=== PATIENT | male | born 1995 | race Caucasian/White ===

== ENCOUNTER 2024-01-08 16:35 | Emergency (ER) | payer OTHER ==
[~2024-01-08] VITALS: Ht 193 cm; Wt 141.1 kg
[2024-01-08 17:13] VITALS: O2SAT 96
[2024-01-08 17:41] LABS: BASOPHILS % 0.5 % (0.0-2.0); EOSINOPHILS % 0.4 % (0.0-5.0); HEMATOCRIT. 45.7 % (42.0-52.0); HEMOGLOBIN. 15.6 g/dL (14.0-18.0); LYMPHOCYTES % 23.5 % (20.0-50.0); MEAN CORPUSCULAR HEMOGLOBIN 29.2 pg (28.0-32.0); MEAN CORPUSCULAR HGB CONC 34.1 g/dL (31.0-37.0); MEAN CORPUSCULAR VOLUME 85.7 fL (80.0-94.0); MEAN PLATELET VOLUME 7.3 fl (7.4-10.4); MONOCYTES % 4.5 % (2.0-8.0); NEUTROPHILS % 71.1 % (40.0-76.0); PLATELET 290 x1000/uL (130-400); RED BLOOD CELL COUNT 5.33 mill/uL (4.7-6.1); WHITE BLOOD COUNT 6.5 x1000/uL (4.5-11.0)
[2024-01-08 18:39] LABS: CHLORIDE 104 mEq/L (98-107); SODIUM 136 mEq/L (136-145)
[2024-01-08 18:40] LABS: CALCIUM 9.9 mg/dL (8.7-10.4); CARBON DIOXIDE 25 mEq/L (21-32)
[2024-01-08 18:45] LABS: CREATININE 0.9 mg/dL (0.6-1.3); GLUCOSE 105 mg/dL (70-105); UREA NITROGEN BLOOD 9 mg/dL (9-23)
[2024-01-08 19:13] LABS: CLARITY URINE CLEAR (CLEAR); COLOR URINE YELLOW (YELLOW); GLUCOSE URINE NEGATIVE (NEGATIVE); KETONES URINE NEGATIVE (NEGATIVE); LEUKOCYTE ESTERASE URINE NEGATIVE (NEGATIVE); NITRITE URINE NEGATIVE (NEGATIVE); OCCULT BLOOD URINE NEGATIVE (NEGATIVE); PH URINE 6.5 (4.5-8.0); PROTEIN URINE NEGATIVE (NEGATIVE); SPECIFIC GRAVITY URINE 1.027 (1.005-1.030)
[2024-01-08 19:23] VITALS: BP 149/93; PULSE 84; RESP 15; TEMP 98.4
== END 2024-01-08 19:36 | disposition home or self-care (01) ==
LOC: ER 16:35
DX: R55 Syncope and collapse (principal); I10 Essential (primary) hypertension
CPT/HCPCS: 80048; 81003; 85025; 36415; 93005; 99284; Z7610

== ENCOUNTER 2024-01-09 18:54 | Inpatient (IN) | payer OTHER ==
[~2024-01-09] VITALS: Ht 193 cm; Wt 143.0 kg
[2024-01-09 19:55] LABS: BASOPHILS % 0.7 % (0.0-2.0); EOSINOPHILS % 1.6 % (0.0-5.0); HEMATOCRIT. 46.3 % (42.0-52.0); HEMOGLOBIN. 16.3 g/dL (14.0-18.0); LYMPHOCYTES % 33.7 % (20.0-50.0); MEAN CORPUSCULAR HEMOGLOBIN 29.7 pg (28.0-32.0); MEAN CORPUSCULAR HGB CONC 35.1 g/dL (31.0-37.0); MEAN CORPUSCULAR VOLUME 84.6 fL (80.0-94.0); MEAN PLATELET VOLUME 7.2 fl (7.4-10.4); MONOCYTES % 7.8 % (2.0-8.0); NEUTROPHILS % 56.2 % (40.0-76.0); PLATELET 293 x1000/uL (130-400); RED BLOOD CELL COUNT 5.47 mill/uL (4.7-6.1); RED CELL DISTRIBUTION WIDTH 13.6 % (11.6-14.6); WHITE BLOOD COUNT 5.9 x1000/uL (4.5-11.0)
[2024-01-09 20:02] LABS: CHLORIDE 104 mEq/L (98-107); POTASSIUM 4.1 mEq/L (3.5-5.1); SODIUM 137 mEq/L (136-145)
[2024-01-09 20:03] LABS: CALCIUM 10.3 mg/dL (8.7-10.4); CARBON DIOXIDE 27 mEq/L (21-32)
[2024-01-09 20:08] LABS: CREATININE 0.9 mg/dL (0.6-1.3); GLUCOSE 79 mg/dL (70-105); UREA NITROGEN BLOOD 11 mg/dL (9-23)
[2024-01-09 20:10] LABS: ALANINE AMINOTRANSFERASE 91 IU/L (10-49); ALBUMIN 5.4 g/dL (3.2-4.8); ASPARTATE AMINOTRANSFERASE 50 IU/L (<34); BILIRUBIN TOTAL 3.2 mg/dL (0.1-1.0); PROTEIN TOTAL 8.4 g/dL (6.0-8.3)
[2024-01-09 20:10] LABS: CLARITY URINE CLEAR (CLEAR); COLOR URINE DARK YELLOW (YELLOW); GLUCOSE URINE NEGATIVE (NEGATIVE); KETONES URINE TRACE (NEGATIVE); LEUKOCYTE ESTERASE URINE NEGATIVE (NEGATIVE); NITRITE URINE NEGATIVE (NEGATIVE); OCCULT BLOOD URINE NEGATIVE (NEGATIVE); PH URINE 6.5 (4.5-8.0); PROTEIN URINE NEGATIVE (NEGATIVE); SPECIFIC GRAVITY URINE 1.022 (1.005-1.030)
[2024-01-09] MEDS ORDERED: ACETAMINOPHEN 325MG TABLET PO PRN ×2 (23:45)
[2024-01-09] MEDS ORDERED: DOCUSATE SODIUM 100MG CAPSULE PO PRN (23:45)
[2024-01-09] MEDS ORDERED: GUAIFENESIN 200MG/10ML SUGAR FREE UDC PO PRN (23:45)
[2024-01-09] MEDS ORDERED: HYDROCODONE/ACETAMINOPHEN 5/325MG TABLET PO PRN (23:45)
[2024-01-09] MEDS ORDERED: IPRATROPIUM/ALBUTEROL 0.5-3(2.5)MG/3ML NEB HHN PRN (23:45)
[2024-01-09] MEDS ORDERED: MAGNESIUM/ALUMINUM HYDROXIDE/SIMETHICONE 30ML UDC PO PRN (23:45)
[2024-01-10 00:57] LABS: CHLORIDE 102 mEq/L (98-107); SODIUM 136 mEq/L (136-145)
[2024-01-10 00:58] LABS: CARBON DIOXIDE 27 mEq/L (21-32)
[2024-01-10 00:59] LABS: CALCIUM 9.5 mg/dL (8.7-10.4)
[2024-01-10 01:03] LABS: CREATININE 0.9 mg/dL (0.6-1.3); GLUCOSE 96 mg/dL (70-105)
[2024-01-10 01:04] LABS: UREA NITROGEN BLOOD 10 mg/dL (9-23)
[2024-01-10 01:05] LABS: ALANINE AMINOTRANSFERASE 77 IU/L (10-49); ALBUMIN 4.5 g/dL (3.2-4.8); ASPARTATE AMINOTRANSFERASE 45 IU/L (<34)
[2024-01-10 01:06] LABS: BILIRUBIN TOTAL 2.6 mg/dL (0.1-1.0); PHOSPHORUS 4.2 mg/dL (2.5-4.9); PROTEIN TOTAL 7.3 g/dL (6.0-8.3)
[2024-01-10] MEDS: CLONIDINE 0.1MG TABLET PO PRN (03:55)
[2024-01-10] MEDS: ONDANSETRON HCL 4MG/2ML INJ IV PRN (03:58)
[2024-01-10] MEDS: MECLIZINE 12.5MG TABLET PO PRN (04:35)
[2024-01-10 07:53] VITALS: BP 169/98; PULSE 77; RESP 18; TEMP 97.5
[2024-01-10 07:55] LABS: BASOPHILS % 0.6 % (0.0-2.0); EOSINOPHILS % 1.1 % (0.0-5.0); HEMATOCRIT. 43.8 % (42.0-52.0); HEMOGLOBIN. 15.1 g/dL (14.0-18.0); LYMPHOCYTES % 28.1 % (20.0-50.0); MEAN CORPUSCULAR HEMOGLOBIN 29.3 pg (28.0-32.0); MEAN CORPUSCULAR HGB CONC 34.5 g/dL (31.0-37.0); MEAN CORPUSCULAR VOLUME 84.9 fL (80.0-94.0); MEAN PLATELET VOLUME 7.2 fl (7.4-10.4); MONOCYTES % 6.5 % (2.0-8.0); NEUTROPHILS % 63.7 % (40.0-76.0); PLATELET 255 x1000/uL (130-400); RED BLOOD CELL COUNT 5.16 mill/uL (4.7-6.1); RED CELL DISTRIBUTION WIDTH 13.7 % (11.6-14.6); WHITE BLOOD COUNT 5.3 x1000/uL (4.5-11.0)
[2024-01-10 08:00] VITALS: BP 120/70; PULSE 68; RESP 18; TEMP 97.7
[2024-01-10] MEDS ORDERED: NALOXONE HCL 0.4MG/ML VIAL IV PRN (08:15)
[2024-01-10 08:16] LABS: CREATINE KINASE 103 IU/L (46-171)
[2024-01-10 08:18] LABS: TROPONIN I HIGH SENSITIVITY < 4 ng/L (3.0-53)
[2024-01-10 08:20] LABS: T4 FREE 1.48 ng/dL (0.89-1.76); THYROID STIMULATING HORMONE 3.19 uIU/mL (0.55-4.78)
[2024-01-10] MEDS: LISINOPRIL 2.5MG TABLET PO SCH (09:05)
[2024-01-10 09:57] LABS: BILIRUBIN DIRECT 0.6 mg/dL (<=3.0)
[2024-01-10] MEDS ORDERED: LISI2.5T47 PO (10:08)
[2024-01-10 11:22] LABS: HEPATITIS B SURFACE ANTIGEN NEGATIVE (Negative)
[2024-01-10 11:43] LABS: HEPATITIS A AB IGM NEGATIVE (Negative); HEPATITIS B CORE AB IGM NEGATIVE (Negative)
[2024-01-10 11:44] LABS: HEPATITIS C AB NON REACTIVE (Neg) (Negative)
[2024-01-10 12:00] VITALS: BP 117/67; PULSE 67; RESP 18; TEMP 98
[2024-01-10] MEDS: MECLIZINE 25MG TABLET PO PRN (14:24)
[2024-01-10 15:54] LABS: CREATINE KINASE 88 IU/L (46-171); TROPONIN I HIGH SENSITIVITY < 4 ng/L (3.0-53)
[2024-01-10 16:00] VITALS: BP 120/79; PULSE 69; RESP 18; TEMP 97.9
[2024-01-10 17:08] VITALS: BP 120/70; PULSE 75; TEMP 98; O2SAT 98
== END 2024-01-10 18:00 | disposition home or self-care (01) | DRG 641 ==
LOC: ER 18:54 → 5WST 01-10 00:06 → 7EST 01-10 04:18
PROVIDERS: ADMIT Internal Medicine; ATTEND Internal Medicine
DX: E86.0 Dehydration (principal); R42 Dizziness and giddiness; E78.5 Hyperlipidemia, unspecified; Z68.38 Body mass index [BMI] 38.0-38.9, adult; I10 Essential (primary) hypertension; E66.01 Morbid (severe) obesity due to excess calories; R74.8 Abnormal levels of other serum enzymes
CPT/HCPCS: 36415; 71045; 76770; 80053; 80061; 81003; 82248; 82550; 83735; 84100; 84439; 84443; 84484; 85025; 86705; 86709; 87340; 93970; 99285; J2405; J8597